=== PATIENT | male | born 1990 | race Caucasian/White ===

== ENCOUNTER 2018-06-04 17:44 | Observation (INO) | payer BC ==
[2018-06-04] MEDS ORDERED: SODIUM CHLORIDE 0.9% 1,000 ML IV STA (18:07)
[2018-06-04] MEDS ORDERED: ONDANSETRON 4 MG/2 ML VIAL IVP STA (18:07)
[2018-06-04] MEDS ORDERED: MORPHINE SULFATE 2 MG/ML SYRINGE IVP STA (18:07)
--- NOTE | 2018-06-04 18:11 | ED ---
General Adult HPI - General Source: patient, RN notes reviewed, old records reviewed Mode of arrival: ambulatory Limitations: no limitations <Eric Burgess - Last Filed: 06/04/18 18:11> <Gage Contreras - Last Filed: 06/04/18 19:55> - General Chief complaint: Abdominal Pain Stated complaint: severe abdominal pain Time Seen by Provider: 06/04/18 17:50 - History of Present Illness Initial comments: 28-year-old male patient past medical history only significant for gerd and depression - on lexapro presents to ED with approximately 12 hours of right lower quadrant abdominal pain. Patient states that the pain began this morning , describes as a stabbing pain. Patient has been nauseous throughout the day, however his emesis. Patient reports decreased appetite throughout the day, has not eaten much food. Patient denies any fevers, but does report Some chills. Patient states that he had a bowel movement at approximately 9:00 this morning which was normal, nonbloody. Patient denies any previous abdominal surgeries. Patient denies chest pain, shortness of breath. Systemic: Pt denies fatigue, myalgia, fever, rash. Pt denies weakness, night sweats, weight loss. Neuro: Pt denies headache, visual disturbances, syncope or pre-syncope. HEENT: Pt denies ocular discharge or irritation, otalgia, rhinorrhea, pharyngitis or notable lymphadenopathy. Cardiopulmonary: Pt denies chest pain, SOB, heart palpitations, dyspnea on exertion. Abdominal/GI: Pt denies /v/d. : Pt denies dysuria, burning w/ urination, frequency/urgency. Denies new onset urinary or bowel incontinence. MSK: Pt denies myalgia, loss of strength or function in extremities. Neuro: Pt denies new onset weakness, paresthesias. (Eric Burgess) - Related Data Home Medications Medication Instructions Recorded Confirmed Escitalopram [Lexapro] 20 mg PO HS 06/04/18 06/04/18 Ranitidine HCl [Zantac] 150 mg PO BID PRN 06/04/18 06/04/18 Topiramate [Topamax] 100 mg PO HS 06/04/18 06/04/18 Allergies Allergy/AdvReac Type Severity Reaction Status Date / Time alcohol Allergy Rash/Hives Verified 06/04/18 18:11 Review of Systems ROS Other: All systems not noted in ROS Statement are negative. <Eric Burgess - Last Filed: 06/04/18 18:11> ROS Other: All systems not noted in ROS Statement are negative. <Gage Contreras - Last Filed: 06/04/18 19:55> ROS Statement: Those systems with pertinent positive or pertinent negative responses have been documented in the HPI. Past Medical History Past Medical History: No Reported History History of Any Multi-Drug Resistant Organisms: None Reported Additional Past Surgical History / Comment(s): fibroma removed from tongue Past Psychological History: No Psychological Hx Reported Smoking Status: Never smoker Past Alcohol Use History: Occasional Past Drug Use History: None Reported <Eric Burgess - Last Filed: 06/04/18 18:11> General Exam Limitations: no limitations <Eric Burgess - Last Filed: 06/04/18 18:11> <Gage Contreras - Last Filed: 06/04/18 19:55> - General Exam Comments Initial Comments: Constitutional: NAD, AOX3, Pt has pleasant affect. HEENT: NC/AT, trachea midline, neck supple, no lymphadenopathy. Posterior pharynx non erythematous, without exudates. External ears appear normal, without discharge. Mucous membranes moist. Eyes PERRLA, EOM intact. There is no scleral icterus. No pallor noted. Cardiopulmonary: RRR, no murmurs, rubs or gallops, no JVD noted. Lungs CTAB in anterior and posterior cowan. No peripheral edema. Abdominal exam: Abdomen soft and non-distended. Abdomen mildly tender to palpation in RLQ. Rosvings sign negative, psoas sign negative. No guarding no rigidity. Bowel sounds active in LLQ. No hepatosplenomegaly. No ecchymosis Neuro: CN II-XII grossly intact. No nuchal rigidity. MSK: No posterior calf tenderness bilaterally, homans sign negative bilaterally. Posterior tibialis and radial pulse +2 bilaterally. Sensation intact in upper and lower extremities. Full active ROM in upper and lower extremities, 5/5 stregnth. (Eric Burgess) Vital Signs 06/04/18 06/04/18 17:48 19:30 Temperature 98.7 F Pulse Rate 87 83 Respiratory 16 16 Rate Blood Pressure 133/86 126/77 O2 Sat by Pulse 98 97 Oximetry Medical Decision Making <JeniferKendallEric J - Last Filed: 06/04/18 18:11> - Lab Data Result diagrams: 06/04/18 18:27 06/04/18 18:27 <Gage Contreras - Last Filed: 06/04/18 19:55> - Medical Decision Making 28-year-old male with 1 day history of generalized abdominal pain progressing to right lower quadrant pain. Patient has significant point tenderness in the right lower quadrant, has mild leukocytosis 12.2, CT confirms acute appendicitis. Case discussed with Dr. Hirsch, he will accept admission. Patient kept nothing by mouth, IV fluids, IV antibiotics and symptomatic control. (Gage Contreras) - Lab Data Lab Results 06/04/18 06/04/18 06/04/18 Range/Units 18:27 18:27 18:27 WBC 12.2 H (3.8-10.6) k/uL RBC 5.60 (4.30-5.90) m/uL Hgb 17.2 (13.0-17.5) gm/dL Hct 49.3 (39.0-53.0) % MCV 88.0 (80.0-100.0) fL MCH 30.7 (25.0-35.0) pg MCHC 34.9 (31.0-37.0) g/dL RDW 12.6 (11.5-15.5) % Plt Count 226 (150-450) k/uL Neutrophils % 84 % Lymphocytes % 9 % Monocytes % 5 % Eosinophils % 1 % Basophils % 0 % Neutrophils # 10.3 H (1.3-7.7) k/uL Lymphocytes # 1.1 (1.0-4.8) k/uL Monocytes # 0.6 (0-1.0) k/uL Eosinophils # 0.1 (0-0.7) k/uL Basophils # 0.0 (0-0.2) k/uL Sodium 140 (137-145) mmol/L Potassium 4.2 (3.5-5.1) mmol/L Chloride 101 (98-107) mmol/L Carbon Dioxide 29 (22-30) mmol/L Anion Gap 10 mmol/L BUN 18 (9-20) mg/dL Creatinine 1.03 (0.66-1.25) mg/dL Est GFR (CKD-EPI)AfAm >90 (>60 ml/min/1.73 sqM) Est GFR (CKD-EPI)NonAf >90 (>60 ml/min/1.73 sqM) Glucose 109 H (74-99) mg/dL Plasma Lactic Acid Michael 1.2 (0.7-2.0) mmol/L Calcium 9.4 (8.4-10.2) mg/dL Total Bilirubin 0.7 (0.2-1.3) mg/dL AST 34 (17-59) U/L ALT 53 (21-72) U/L Alkaline Phosphatase 69 (38-126) U/L Total Protein 7.5 (6.3-8.2) g/dL Albumin 4.7 (3.5-5.0) g/dL Amylase 74 (30-110) U/L Lipase 43 (23-300) U/L Urine Color Urine Appearance (Clear) Urine pH (5.0-8.0) Ur Specific Thomas (1.001-1.035) Urine Protein (Negative) Urine Glucose (UA) (Negative) Urine Ketones (Negative) Urine Blood (Negative) Urine Nitrite (Negative) Urine Bilirubin (Negative) Urine Urobilinogen (<2.0) mg/dL Ur Leukocyte Esterase (Negative) 06/04/18 Range/Units 18:41 WBC (3.8-10.6) k/uL RBC (4.30-5.90) m/uL Hgb (13.0-17.5) gm/dL Hct (39.0-53.0) % MCV (80.0-100.0) fL MCH (25.0-35.0) pg MCHC (31.0-37.0) g/dL RDW (11.5-15.5) % Plt Count (150-450) k/uL Neutrophils % % Lymphocytes % % Monocytes % % Eosinophils % % Basophils % % Neutrophils # (1.3-7.7) k/uL Lymphocytes # (1.0-4.8) k/uL Monocytes # (0-1.0) k/uL Eosinophils # (0-0.7) k/uL Basophils # (0-0.2) k/uL Sodium (137-145) mmol/L Potassium (3.5-5.1) mmol/L Chloride (98-107) mmol/L Carbon Dioxide (22-30) mmol/L Anion Gap mmol/L BUN (9-20) mg/dL Creatinine (0.66-1.25) mg/dL Est GFR (CKD-EPI)AfAm (>60 ml/min/1.73 sqM) Est GFR (CKD-EPI)NonAf (>60 ml/min/1.73 sqM) Glucose (74-99) mg/dL Plasma Lactic Acid Michael (0.7-2.0) mmol/L Calcium (8.4-10.2) mg/dL Total Bilirubin (0.2-1.3) mg/dL AST (17-59) U/L ALT (21-72) U/L Alkaline Phosphatase (38-126) U/L Total Protein (6.3-8.2) g/dL Albumin (3.5-5.0) g/dL Amylase (30-110) U/L Lipase (23-300) U/L Urine Color Yellow Urine Appearance Clear (Clear) Urine pH 6.0 (5.0-8.0) Ur Specific Thomas 1.022 (1.001-1.035) Urine Protein Negative (Negative) Urine Glucose (UA) Negative (Negative) Urine Ketones 2+ H (Negative) Urine Blood Negative (Negative) Urine Nitrite Negative (Negative) Urine Bilirubin Negative (Negative) Urine Urobilinogen <2.0 (<2.0) mg/dL Ur Leukocyte Esterase Negative (Negative) Disposition <Eric Burgess - Last Filed: 06/04/18 18:11> Is patient prescribed a controlled substance at d/c from ED?: No Decision to Admit Reason: Admit from EC Decision Date: 06/04/18 Decision Time: 19:55 <Gage Contreras - Last Filed: 06/04/18 19:55> Clinical Impression: Acute appendicitis Disposition: ADMITTED IP TO THIS HOSP Condition: Stable Referrals: Oneyda Diaz DO [Primary Care Provider] - 1-2 days
[2018-06-04 18:39] LABS: Basophils % (A) 0 %; Eosinophils # (A) 0.1 k/uL (0-0.7); Eosinophils % (A) 1 %; HCT 49.3 % (39.0-53.0); HGB 17.2 gm/dL (13.0-17.5); Lymphocytes # (A) 1.1 k/uL (1.0-4.8); Lymphocytes % (A) 9 %; MCH 30.7 pg (25.0-35.0); MCHC 34.9 g/dL (31.0-37.0); Mean Platelet Volume 7.6; Monocytes # (A) 0.6 k/uL (0-1.0); Monocytes % (A) 5 %; Neutrophils # (A) 10.3 k/uL (1.3-7.7); Neutrophils % (A) 84 %; Platelet Count 226 k/uL (150-450); RDW 12.6 % (11.5-15.5); WBC 12.2 k/uL (3.8-10.6)
[2018-06-04 18:47] LABS: ALT 53 U/L (21-72); AST 34 U/L (17-59); Albumin 4.7 g/dL (3.5-5.0); Alkaline Phosphatase 69 U/L (38-126); Amylase 74 U/L (30-110); Anion Gap 10 mmol/L; Blood Urea Nitrogen 18 mg/dL (9-20); Calcium 9.4 mg/dL (8.4-10.2); Carbon Dioxide 29 mmol/L (22-30); Chloride 101 mmol/L (98-107); Glucose 109 mg/dL (74-99); Lipase 43 U/L (23-300); Potassium 4.2 mmol/L (3.5-5.1); Sodium 140 mmol/L (137-145); Total Bilirubin 0.7 mg/dL (0.2-1.3); Total Protein 7.5 g/dL (6.3-8.2)
[2018-06-04 18:54] LABS: Appearance,Urine Clear (Clear); Bilirubin,Urine Negative (Negative); Blood,Urine Negative (Negative); Color,Urine Yellow; Glucose,Urine (UA) Negative (Negative); Ketones,Urine 2+ (Negative); Leukocyte Esterase,Urine Negative (Negative); Nitrite,Urine Negative (Negative); Protein,Urine Negative (Negative); Specific Gravity,Urine 1.022 (1.001-1.035); Urobilinogen,Urine <2.0 mg/dL (<2.0)
--- NOTE | 2018-06-04 19:28 | CT ---
EXAMINATION TYPE: CT abdomen pelvis w con DATE OF EXAM: 06/04/2018 COMPARISON: None HISTORY: RLQ pain CT DLP: 1085.3 mGycm Automated exposure control for dose reduction was used. TECHNIQUE: Helical acquisition of images was performed from the lung bases through the pelvis. CONTRAST: Performed without Oral Contrast and with IV Contrast, patient injected with 100 mL of Isovue 300. FINDINGS: Lung bases are clear. There is no pleural effusion. Heart size is normal. Liver spleen pancreas gallbladder appear normal. Bile ducts are not dilated. There is no adrenal mass. The kidneys show satisfactory contrast opacification. There is no hydroneph rosis. There is thickened fluid filled appendix with small appendicolith. Appendix measures up to 13 mm. There is no ascites. There is no retroperitoneal adenopathy. Bladder distends smoothly. There is no inguinal hernia. There is no free fluid in the pelvis. I see n o intestinal wall thickening. There are no dilated loops. There is no mesenteric edema. The lumbar spine is intact. I see no bony destructive process. IMPRESSION: THERE IS THICKENED APPENDIX WITH APPENDICOLITH CONSISTENT WITH ACUTE APPENDICITIS. NO ABSCESS.
[2018-06-04] MEDS ORDERED: PIPERACILLIN-TAZOBACTAM 3.375 GM in SODIUM CHLORIDE 0.9% 100 ML IVPB STA (19:41)
[2018-06-04] MEDS ORDERED: NALOXONE 0.4 MG/ML 1 ML VIAL IV PRN (19:52)
[2018-06-04] MEDS ORDERED: ONDANSETRON 4 MG/2 ML VIAL IVP PRN (19:52)
[2018-06-04] MEDS ORDERED: ACETAMINOPHEN TAB 325 MG TAB PO PRN (19:52)
[2018-06-04] MEDS: SODIUM CHLORIDE 0.9% 1,000 ML IV SCH (20:24)
[2018-06-04] MEDS: MORPHINE SULFATE 4 MG/ML SYRINGE IV PRN (20:57)
[2018-06-04 21:01] LABS: Partial Thromboplastin Time 26.4 sec (22.0-30.0); Prothrombin Time 10.6 sec (9.0-12.0)
[2018-06-05] MEDS: MORPHINE SULFATE 4 MG/ML SYRINGE IV PRN (00:04)
[2018-06-05] MEDS: PIPERACILLIN-TAZOBACTAM 3.375 GM in SODIUM CHLORIDE 0.9% 100 ML IVPB SCH ×2 (04:57→11:16)
[2018-06-05] MEDS ORDERED: LACTATED RINGERS 1,000 ML IV ONE (06:49)
[2018-06-05] MEDS ORDERED: SUCCINYLCHOLINE CHLORIDE VIAL 200 MG/10 ML VIAL IV ONE (06:49)
[2018-06-05] MEDS ORDERED: fentaNYL (PF) 50 MCG/ML 2 ML AMP ONE (06:49)
[2018-06-05] MEDS ORDERED: PROPOFOL 10 MG/ML 20 ML VIAL IV ONE (06:49)
[2018-06-05] MEDS ORDERED: LIDOCAINE 1% INJ 10MG/ML (20 ML MDV) ONE (06:49)
[2018-06-05] MEDS ORDERED: NALOXONE 0.4 MG/ML 1 ML VIAL ONE (06:49)
[2018-06-05] MEDS ORDERED: KETOROLAC 30 MG/ML 1 ML VIAL ONE (06:49)
[2018-06-05] MEDS ORDERED: BUPIVACAIN-EPI 0.5%-1:200,000 30 ML VIAL SQ ONE (06:49)
[2018-06-05] MEDS ORDERED: ROCURONIUM BROMIDE 10 MG/ML 10 ML VIAL IV ONE (06:49)
[2018-06-05] MEDS ORDERED: MIDAZOLAM 2 MG/2 ML VIAL ONE (06:49)
--- NOTE | 2018-06-05 06:49 | P.GSHP ---
History of Present Illness H&P Date: 06/05/18 Chief Complaint: Acute appendicitis Patient here today for laparoscopic appendectomy. Patient seen in the ER last night. Pain began yesterday morning. Pain initially in the upper abdomen and radiated down to the right lower quadrant. Nausea present but no vomiting. No fevers. No history of similar events. Normal bowel habits. White blood cell count 12. CAT scan confirms acute appendicitis. - Review of Systems Comment: The patient denies any acute changes in vision or hearing, no dysphagia or odynophagia, no chest pain or shortness of breath, no dysuria or hematuria, no headache, no runny nose, no rectal bleeding or melena, no unexplained weight loss Past Medical History Past Medical History: GERD/Reflux Additional Past Medical History / Comment(s): depression History of Any Multi-Drug Resistant Organisms: None Reported Additional Past Surgical History / Comment(s): fibroma removed from tongue Past Anesthesia/Blood Transfusion Reactions: No Reported Reaction Additional Past Anesthesia/Blood Transfusion Reaction / Comment(s): has never had general aa Smoking Status: Never smoker - Past Family History Mother Family Medical History: Thyroid Disorder Father Family Medical History: Osteoarthritis (OA) Additional Family Medical History / Comment(s): djd has had joint replacments Medications and Allergies Home Medications Medication Instructions Recorded Confirmed Type Escitalopram [Lexapro] 20 mg PO HS 06/04/18 06/04/18 History Ranitidine HCl [Zantac] 150 mg PO BID PRN 06/04/18 06/04/18 History Topiramate [Topamax] 100 mg PO HS 06/04/18 06/04/18 History Allergies Allergy/AdvReac Type Severity Reaction Status Date / Time alcohol Allergy Rash/Hives Verified 06/04/18 18:11 Surgical - Exam Vital Signs Temp Pulse Resp BP Pulse Ox 98.7 F 87 16 133/86 98 06/04/18 17:48 06/04/18 17:48 06/04/18 17:48 06/04/18 17:48 06/04/18 17:48 Physical exam: General: Well-developed, well-nourished HEENT: Normocephalic, sclerae nonicteric Abdomen: Right lower quadrant tenderness, nondistended Extremities: No edema Neuro: Alert and oriented Results - Labs 06/04/18 18:27 06/04/18 18:27 Abnormal Lab Results - Last 24 Hours (Table) 06/04/18 06/04/18 06/04/18 Range/Units 18:27 18:27 18:41 WBC 12.2 H (3.8-10.6) k/uL Neutrophils # 10.3 H (1.3-7.7) k/uL Glucose 109 H (74-99) mg/dL Urine Ketones 2+ H (Negative) Diabetes panel 06/04/18 Range/Units 18:27 Sodium 140 (137-145) mmol/L Potassium 4.2 (3.5-5.1) mmol/L Chloride 101 (98-107) mmol/L Carbon Dioxide 29 (22-30) mmol/L BUN 18 (9-20) mg/dL Creatinine 1.03 (0.66-1.25) mg/dL Glucose 109 H (74-99) mg/dL Calcium 9.4 (8.4-10.2) mg/dL AST 34 (17-59) U/L ALT 53 (21-72) U/L Alkaline Phosphatase 69 (38-126) U/L Total Protein 7.5 (6.3-8.2) g/dL Albumin 4.7 (3.5-5.0) g/dL Calcium panel 06/04/18 Range/Units 18:27 Calcium 9.4 (8.4-10.2) mg/dL Albumin 4.7 (3.5-5.0) g/dL Pituitary panel 06/04/18 Range/Units 18:27 Sodium 140 (137-145) mmol/L Potassium 4.2 (3.5-5.1) mmol/L Chloride 101 (98-107) mmol/L Carbon Dioxide 29 (22-30) mmol/L BUN 18 (9-20) mg/dL Creatinine 1.03 (0.66-1.25) mg/dL Glucose 109 H (74-99) mg/dL Calcium 9.4 (8.4-10.2) mg/dL Adrenal panel 06/04/18 Range/Units 18:27 Sodium 140 (137-145) mmol/L Potassium 4.2 (3.5-5.1) mmol/L Chloride 101 (98-107) mmol/L Carbon Dioxide 29 (22-30) mmol/L BUN 18 (9-20) mg/dL Creatinine 1.03 (0.66-1.25) mg/dL Glucose 109 H (74-99) mg/dL Calcium 9.4 (8.4-10.2) mg/dL Total Bilirubin 0.7 (0.2-1.3) mg/dL AST 34 (17-59) U/L ALT 53 (21-72) U/L Alkaline Phosphatase 69 (38-126) U/L Total Protein 7.5 (6.3-8.2) g/dL Albumin 4.7 (3.5-5.0) g/dL Assessment and Plan (1) Acute appendicitis Narrative/Plan: Will proceed with laparoscopic appendectomy, possible open. Risks of bleeding, infection, abscess, bladder and bowel injury, conversion to an open procedure discussed with patient. He understands and wishes to proceed. Current Visit: Yes Status: Acute Code(s): K35.80 - UNSPECIFIED ACUTE APPENDICITIS SNOMED Code(s): 42428753
[2018-06-05] MEDS ORDERED: HYDROcodone/APAP 5-325MG 1 EACH TAB PO PRN (07:54)
--- NOTE | 2018-06-05 07:55 | P.OP ---
Date of Procedure: 06/05/18 Procedure(s) Performed: PREOPERATIVE DIAGNOSIS: Acute appendicitis POSTOPERATIVE DIAGNOSIS: Same PROCEDURE: Laparoscopic appendectomy SURGEON: Torrey EBL: Total ANESTHESIA: General COMPLICATIONS: None OPERATIVE PROCEDURE: The patient was brought and placed on the operating table in the supine position. The patient was placed under general anesthesia. The abdomen was prepped and draped in the usual sterile fashion. A small vertical infraumbilical incision was made. The fascia was retracted anteriorly with Daryl forceps. The Veress needle was advanced into the perineal cavity. The saline drop test was normal. Insufflation took place to 15 mmHg. A 5 mm trocar was then placed. An additional 5 mm suprapubic trocar was placed under direct visualization as well as a 12 mm left lower quadrant trocar under direct visualization. The appendix was inspected. It was acutely inflamed. The mesoappendix was dissected. The base of the appendix was divided using a linear 45 mm intestinal stapler. The mesentery itself was divided using a rodriguez load stapler 2. The area was then irrigated. No further purulence or bleeding was seen. The appendix was brought out of the peritoneal cavity through the left lower quadrant trocar site using an Endo Catch bag. The fascia at the 12 mm site was closed using a [id number] 0 Vicryl stitch. The skin at all 3 sites was closed using 4-0 Monocryl sutures. Skin glue was then applied. DISPOSITION: Stable to recovery room
[2018-06-05] MEDS: SODIUM CHLORIDE 0.9% 1,000 ML IV SCH (11:13)
[2018-06-05 15:01] VITALS: BP 122/79; PULSE 87; RESP 16; TEMP 98.4
--- NOTE | 2018-06-05 15:12 | P.DS ---
Providers Date of admission: 06/04/18 19:52 Expected date of discharge: 06/05/18 Attending physician: Eusebio Hirsch Primary care physician: Oneyda Diaz Hospital Course: 28-year-old male who presented to emergency room with abdominal pain. CAT scan confirmed acute appendicitis. The patient underwent laparoscopic appendectomy. He has done well postoperatively without immediate complications. His pain is tolerable. He is tolerating oral diet. Denies nausea or vomiting. He is stable for discharge home. See EMR for further details regarding hospital course. DISCHARGE DIAGNOSIS: 1. Abdominal pain 2. Acute appendicitis, status post laparoscopic appendectomy 3. Leukocytosis Nurse practitioner note has been reviewed by physician. Signing provider agrees with the documented findings, assessment, and plan of care. Patient Condition at Discharge: Stable Plan - Discharge Summary Discharge Rx Participant: No New Discharge Prescriptions: New HYDROcodone/APAP 5-325MG [[place] 5-325] 1 tab PO Q4HR PRN 3 Days #18 tab PRN Reason: Pain No Action Topiramate [Topamax] 100 mg PO HS Ranitidine HCl [Zantac] 150 mg PO BID PRN PRN Reason: Heartburn Escitalopram [Lexapro] 20 mg PO HS Discharge Medication List Escitalopram [Lexapro] 20 mg PO HS 06/04/18 [History] Ranitidine HCl [Zantac] 150 mg PO BID PRN 06/04/18 [History] Topiramate [Topamax] 100 mg PO HS 06/04/18 [History] HYDROcodone/APAP 5-325MG [[place] 5-325] 1 tab PO Q4HR PRN 3 Days #18 tab [Rx] Follow up Appointment(s)/Referral(s): Eusebio Hirsch MD [Medical Doctor] - 1 Week Oneyda Diaz DO [Primary Care Provider] - 1-2 days Patient Instructions/Handouts: Laparoscopic Appendectomy (DC)
== END 2018-06-05 15:40 | disposition home or self-care (01) ==
LOC: EC 17:44 → 4MS4W 19:52
PROVIDERS: ADMIT Surgery; ATTEND Surgery
DX: K35.80 Unspecified acute appendicitis (principal); K21.9 Gastro-esophageal reflux disease without esophagitis; F32.9 Major depressive disorder, single episode, unspecified; Z83.49 Family history of other endocrine, nutritional and metabolic diseases; Z79.899 Other long term (current) drug therapy; Z91.09 Other allergy status, other than to drugs and biological substances; Z88.5 Allergy status to narcotic agent
CPT/HCPCS: 44970; 96376 ×2; 96361; 96374; 96375; 99285; 36415; 86900; 86901; 88304; 80053; 82150; 83605; 83690; 85025; 85610; 85730; 86850; 81003; 87040; 74177; G0378 ×2; J2543 ×2; J2250; J0330; J2270 ×3; J2310; J2405; J2001; J3010; J1885; J2704; Q9967